=== PATIENT | male | born 1945 | race Caucasian/White ===

== ENCOUNTER 2017-01-22 08:22 | Outpatient (CLI) | payer MEDICARE, OTHER ==
[2017-01-22 09:42] LABS: eGFR (African) > 60; eGFR (Non-African) 58
== END 2017-01-22 08:23 ==
LOC: LAB 08:22
PROVIDERS: ATTEND Family Medicine
DX: I10 Essential (primary) hypertension (principal); M25.50 Pain in unspecified joint
CPT/HCPCS: 36415; 80053; 80061; 85651

== ENCOUNTER 2017-03-27 10:42 | Outpatient (CLI) | payer MEDICARE, OTHER | END 2017-03-27 10:43 | LOC: LAB 10:42 | PROVIDERS: ATTEND Family Medicine | DX: R73.9 Hyperglycemia, unspecified (principal) | CPT/HCPCS: 36415; 83036 ==

== ENCOUNTER 2018-04-17 07:12 | Outpatient (CLI) | payer MEDICARE, OTHER | END 2018-04-17 07:13 | LOC: LAB 07:12 | PROVIDERS: ATTEND Family Medicine | DX: Z00.00 Encounter for general adult medical examination without abnormal findings (principal); R73.9 Hyperglycemia, unspecified; E78.5 Hyperlipidemia, unspecified | CPT/HCPCS: 36415; 80053; 80061; 82565; 83036 ==